=== PATIENT | female | born 1940 | race African-American/Black ===

== ENCOUNTER 2017-03-25 14:38 | Inpatient (IN) ==
[2017-03-25] MEDS ORDERED: COCAINE SUBSTITUTE 30 ML BOTTLE TOP ONE (15:05)
[2017-03-25] MEDS ORDERED: SODIUM CHLORIDE 0.9% 250 ML IV PRN (15:14)
--- NOTE | 2017-03-25 15:31 | Emergency Department Note ---
Krista Dunaway Gwan, am scribing for, and in the presence of, Sam Driver MD 15:12 . Neisha Dunaway James D, MD, personally performed the services described in this documentation, ascribed by Kendy Velasco in my presence, and it is both accurate and complete 529 . Arrival - Arrival Chief Complaint: Nosebleed/Nasal Foreign Body Stated Complaint: nosebleed ED Nursing Triage Note: Transfer from [facility] ER for further evaluation of nosebleed onset this am. Active bleeding noted. Patient takes Coumadin 5mg daily. Denies pain. Mode of Arrival: Stretcher Limitations: No Limitations Source: Patient, Old Records Reviewed, RN Notes Reviewed Time Seen by Provider: 03/25/17 14:58 - History of Present Illness HPI Narrative: Pt is a 76 y/o female, with a hx of HTN and afib, who presents to the via EMS and transferred from [facility] for further evalution of epistaxis with an onset this morning. Patient confirmed that she is taking Coumadin 5mg daily. Patient confirmed that she had this happen about 3 months ago but she denies that it was this bad. She noted that her bleeding is more profuse on left than on the right. Patient denies a SHx of smoking cigarettes or being on Home O2. Pt has a PMHx of cardiac dysrhythmia, RA and blood transfusion. No other problems/complaints reported in ED. Onset (ago): hour(s) Consistency: constant Severity: moderate Date of Last Menstrual Period: Hyst Allergies/Adverse Reactions: Allergies Allergy/AdvReac Type Severity Reaction Status Date / Time ibuprofen Allergy Severe ANAPHYLAXIS Verified 03/25/17 14:56 Penicillins Allergy Severe ITCHING Verified 03/25/17 14:56 Home Medications: Home Medications Medication Instructions Recorded Confirmed Type Allopurinol 300 mg PO DAILY 12/16/16 12/26/16 History Aspirin Chew Tab 81 mg PO DAILY 12/16/16 12/26/16 History Hydrocodone/Acetaminophen 1 each PO TID PRN 12/16/16 12/26/16 History [Hydrocodon-Acetaminophen 5-325] Losartan [Cozaar] 100 mg PO DAILY 12/16/16 12/26/16 History Metoprolol Tartrate Tab [Lopressor 25 mg PO BID 12/16/16 12/26/16 History Tab] Oxybutynin [Ditropan] 5 mg PO BID 12/16/16 12/26/16 History Potassium Chloride Cap/Tab [K Dur] 10 meq PO DAILY 12/16/16 12/26/16 History Spironolactone [Aldactone] 50 mg PO BID 12/16/16 12/26/16 History Warfarin [Coumadin] 0.5 mg PO DAILY 12/16/16 12/26/16 History Warfarin [Coumadin] 5 mg PO DAILY 12/16/16 12/26/16 History hydrALAZINE TAB [Apresoline Tab] 100 mg PO TID 12/16/16 12/26/16 History predniSONE [Dominique] 5 mg PO DAILY 12/16/16 12/26/16 History Tiotropium Br/Olodaterol HCl 4 gm IH DAILY 12/26/16 12/26/16 History [Stiolto Respimat Inhal [place]] HYDROcodone/ACETAMIN 7.5-325 1 tablet PO Q4H PRN #20 tablet 12/27/16 Rx [[place] 7.5-325] Review of System - Review of System 12 point system: reviewed and no additional remarkable complaints except as stated - Review of System Constitutional: Absent: chills, fever Eyes: Absent: discharge, pain Head/Ears/Nose/Throat: Present: see HPI, epistaxis Respiratory: Absent: cough Cardiovascular: Absent: chest pain Gastrointestinal: Absent: abdominal pain, nausea, vomiting, diarrhea Genitourinary female: Absent: abnormal menses, dysuria Musculoskeletal: Absent: arm pain, back pain, leg pain, neck pain Skin: Absent: rash, lesions Neurological: Absent: headache, weakness Psychiatric: Absent: anxiety Medical,Surgical,& Family Hx - Medical History Cardio: History of: Cardiac Dysrhythmia (A FIB ON MEDICATION), Hypertension ( MEDICATION) HEENT: History of: Eye Problem (LEFT EYE CATARACT 2016), HEENT Problems ( NOSEBLEED A FEW DAYS AGO) Rheumatology: History of;: Gout, Rheumatoid Arthritis Respiratory: History of: COPD, Respiratory Problems (SARDOSIS OF THE LUNGS) Genitourinary: History of: Problems (DIFFICULTY URINATING) Musculoskeletal: History of: Back/Neck Problems Hematology: History of: Blood Transfusion Reaction (BLOOD TRANFUSION WITH OWN BLOOD), Clotting Problems (COUMADIN FOR PREVENTION) - Surgical History Abdominal Surgeries: Surgical HX of: Colonoscopy (2014) Reproductive Surgeries: Surgical HX of;: Cystoscopy (2 YEARS AGO), Hysterectomy (PARTIAL 34 YEARS AGO) Orthopedic Surgeries: Surgical HX of;: Total Knee Replacement (LEFT TOTAL KNEE REPLACEMENT) - Family History Family History: Reports;: Family Cancer (MOTHER), Family Heart Disease (MOTHER) , Family Psychiatric Problems (FATHER), Family Stroke (SISTER) - Social History Smoking Status: Never smoker Frequency of Alcohol Use: None Type of Drug Use: None Exam Physical Examination: GENERAL: This is a well-nourished, well-developed female in no apparent distress. VITAL SIGNS: HEENT: Head is normocephalic and atraumatic. Pupils are equally round and reactive to light. Extraocular movement are intact. Oropharynx is benign with moist mucous membranes. Patient has acitve, profuse epistaxis bleeding from bilateral nare during exam: bleeding is more present on left than on the right. NECK: Neck is soft and supple without tenderness. There are no masses. There is no lymphadenopathy. LUNGS: Lungs are clear to auscultation bilaterally. Chest rises symmetrically. There is no chest wall tenderness. CV: Heart is regular rate and rhythm without murmurs, rubs, or gallops. ABDOMEN: Abdomen is soft, non-tender to palpation. There are no abnormal masses palpated. There is no organomegaly. Bowel sounds are present and active. SKIN: Skin is warm and dry. No rash. EXTREMITIES: Patient has full range of motion without tenderness. There is no pedal edema. NEUROLOGIC: Awake, alert, and oriented x4. Cranial nerves II through XII are grossly intact. There are no motorsensory deficits. PSYCHIATRIC: Normal affect. Normal mood. Vital Signs: Vital Signs Temperature 97.2 F L 03/25/17 14:38 Pulse Rate 90 03/25/17 14:38 Respiratory Rate 20 03/25/17 14:38 Blood Pressure 159/88 03/25/17 14:38 O2 Sat by Pulse Oximetry 100 03/25/17 14:38 Course - Consultations Consultation #1: Discussed with Dr. Marinelli. Patient will be seen in the hospital. Time: 15:49 Consultation #2: Discussed with hospitalist. Patient will be admitted to their service. Time: 15:49 Procedures - Epistaxis Control Consent Obtained: verbal consent Time Out Performed: Yes Nostril: bilateral Nose Prepped With: cocaine substitute Direct Inspection: unable to visualize Clots Removed by: suction, manually Device Inserted: hemostatic balloon Patient Tolerated Procedure: well Complications: pain Results - Labs CBC & BMP: 03/25/17 15:29 Lab Results: I have reviewed the patients labs Labs: Laboratory Tests 03/25/17 15:29 WBC 8.2 RBC 3.29 L Hgb 9.4 L Hct 31.0 L MCHC 30.3 L Plt Count 209 Neut % (Auto) 82.8 H Lymph % (Auto) 10.3 L Lymph # (Auto) 0.9 L Disposition Clinical Impression: Epistaxis, Chronic anticoagulation, History of atrial fibrillation Case discussed with: patient, patient's family Disposition: Still a Patient Condition: Guarded
[2017-03-25 15:35] LABS: Basophils % 0.2 % (0.0-0.8); Eosinophils # 0.2 10*3/uL (0.0-0.87); Eosinophils % 2.7 % (0.00-10.9); Hemoglobin 9.4 GM/DL (12.0-16.0); Immature Granulocytes % 0.6 %; Immature Granulocytes Absolute 0.05 #; Lymphocytes # 0.9 10*3/uL (1.4-4.0); Lymphocytes % 10.3 % (21.3-54.2); Mean Corpuscular HGB Conc 30.3 GM/DL (32-36); Mean Corpuscular Hemoglobin 29 PG (27-34); Mean Corpuscular Volume 94.2 FL (87-102); Mean Platelet Volume 11.2 FL (9.6-12.0); Monocytes # 0.3 10*3/uL (0.11-0.8); Monocytes % 3.4 % (1.7-12.7); Neutrophils # 6.8 10*3/uL (1.4-7.4); Neutrophils % 82.8 % (38.7-73.9); Platelet Count 209 T/CUMM (130-400); Red Blood Count 3.29 MC/CUMM (3.8-5.5); Red Cell Distribution Width 15.6 % (9.3-17.3); White Blood Count 8.2 T/CUMM (4-12)
[2017-03-25 15:45] LABS: INR 3.5
[2017-03-25 15:47] LABS: PT Patient Result 40.5 SECS; Partial Thromboplastin Time 43.9 SECS (0-40)
[2017-03-25] MEDS ORDERED: HYDROmorphone 2 MG/1 ML VIAL IV STA (16:02)
[2017-03-25] MEDS ORDERED: ONDANSETRON 4 MG/2 ML VIAL IV STA (16:03)
[2017-03-25 16:09] LABS: Calcium 10.6 MG/DL (8.5-10.1); Potassium 5.4 MMOL/L (3.5-5.1)
[2017-03-25] MEDS ORDERED: HYDROmorphone 2 MG/1 ML VIAL ONE (16:20)
[2017-03-25] MEDS ORDERED: ONDANSETRON 4 MG/2 ML VIAL ONE (16:20)
--- NOTE | 2017-03-25 16:42 | Hospitalist History & Physical ---
Assessment and Plan - Time spent with patient Time spent with patient: Greater than 30 minutes (1) Epistaxis Status: Acute Assessment and plan: Perfuse hemorrhage of both nostrils. Packed in ED. Check CBC w/diff and PT/PTT. Consult ENT. Current Visit: Yes (2) Chronic anticoagulation Status: Acute Assessment and plan: Coumadin 5mg daily. INR 3.5. PTT 43.9. Coumadin has been held. FFP has been ordered. Will recheck CBC and PT/PTT. Current Visit: Yes (3) COPD (chronic obstructive pulmonary disease) Status: Acute Assessment and plan: Decreased breath sounds throughout. Denies O2 use at home. O2 Sat 93-100% on room air. Followed by Dr. Batista. Current Visit: Yes (4) History of atrial fibrillation Status: Acute Assessment and plan: Rate controlled. Hold anticoagulation d/t hemorrhaging. Followed by Dr. Noble. Current Visit: Yes History of Present Illness Chief complaint: Epistaxis History of present illness: Ms. Frost is a 76 year old female with a history significant for hypertension , atrial fibrillation, COPD and TIA in 2011 who presented by EMS as a transfer from [facility] for further evaluation of nosebleed which began this morning. Patient states that she woke up this morning to a perfuse nosebleed that she couldn't get to stop. She reports that these nosebleeds started a few months ago when she began anticoagulation therapy with Coumadin 5 mg daily for atrial fibrillation. She also reports a history of skin cancer for which she started radiation on March 04. She believes the radiation "brought this on" again. In the ER, both nostrils have been packed and the patient does not report any postnasal drainage. She does report hemoptysis, chills and a headache. She denies blurry vision, syncope, chest pain, palpitations, abdominal pain, numbness or tingling. H&H is 9.4 and 31.0, INR is 3.5, PT 40.5, PTT 43.9, BUN 29, Cr 1.40. She has been typed and screened, FFP has been ordered , and ENT consulted. She will be admitted to the hospital medicine service for further evaluation and management. Patient is followed by Dr. Jeana Noble and Dr. Ambrocio Batista. Home Medications Medication Instructions Recorded Confirmed Type Allopurinol 300 mg PO DAILY 12/16/16 12/26/16 History Aspirin Chew Tab 81 mg PO DAILY 12/16/16 12/26/16 History Hydrocodone/Acetaminophen 1 each PO TID PRN 12/16/16 12/26/16 History [Hydrocodon-Acetaminophen 5-325] Losartan [Cozaar] 100 mg PO DAILY 12/16/16 12/26/16 History Metoprolol Tartrate Tab [Lopressor 25 mg PO BID 12/16/16 12/26/16 History Tab] Oxybutynin [Ditropan] 5 mg PO BID 12/16/16 12/26/16 History Potassium Chloride Cap/Tab [K Dur] 10 meq PO DAILY 12/16/16 12/26/16 History Spironolactone [Aldactone] 50 mg PO BID 12/16/16 12/26/16 History Warfarin [Coumadin] 0.5 mg PO DAILY 12/16/16 12/26/16 History Warfarin [Coumadin] 5 mg PO DAILY 12/16/16 12/26/16 History hydrALAZINE TAB [Apresoline Tab] 100 mg PO TID 12/16/16 12/26/16 History predniSONE [Dominique] 5 mg PO DAILY 12/16/16 12/26/16 History Tiotropium Br/Olodaterol HCl 4 gm IH DAILY 12/26/16 12/26/16 History [Stiolto Respimat Inhal [place]] HYDROcodone/ACETAMIN 7.5-325 1 tablet PO Q4H PRN #20 tablet 12/27/16 Rx [[place] 7.5-325] Allergies Allergy/AdvReac Type Severity Reaction Status Date / Time ibuprofen Allergy Severe ANAPHYLAXIS Verified 03/25/17 14:56 Penicillins Allergy Severe ITCHING Verified 03/25/17 14:56 Medical,Surgical,& Family Hx - Medical History Cardio: History of: Cardiac Dysrhythmia (A FIB ON MEDICATION), Hypertension ( MEDICATION) Neurology: History of: Cerebrovascular Accident (2011) HEENT: History of: Eye Problem (LEFT EYE CATARACT 2015), HEENT Problems ( NOSEBLEED A FEW DAYS AGO) Rheumatology: History of;: Gout, Rheumatoid Arthritis Respiratory: History of: COPD, Respiratory Problems (SARDOSIS OF THE LUNGS) Genitourinary: History of: Problems (DIFFICULTY URINATING) Musculoskeletal: History of: Back/Neck Problems Hematology: History of: Blood Transfusion Reaction (BLOOD TRANFUSION WITH OWN BLOOD), Clotting Problems (COUMADIN FOR PREVENTION) - Surgical History Abdominal Surgeries: Surgical HX of: Colonoscopy (2014) Reproductive Surgeries: Surgical HX of;: Cystoscopy (2 YEARS AGO), Hysterectomy (PARTIAL 34 YEARS AGO) Orthopedic Surgeries: Surgical HX of;: Total Knee Replacement (LEFT TOTAL KNEE REPLACEMENT) - Family History Family History: Reports;: Family Cancer (MOTHER), Family Heart Disease (MOTHER) , Family Psychiatric Problems (FATHER), Family Stroke (SISTER) - Social History Smoking Status: Never smoker Frequency of Alcohol Use: None Type of Drug Use: None Marital Status: Single Lives With:: Alone Functional capacity: uses cane/walker - Constitutional Constitutional: Present: chills, headache(s), weakness. Absent: fatigue, fever( s), night sweats - EENT Eyes: Absent: blurry vision, loss of vision Ears: Absent: decreased hearing, ear pain Nose, mouth and throat: Present: epistaxis, headache(s), nasal congestion. Absent: neck pain, sinus pressure - Cardiovascular Cardiovascular: Absent: chest pain at rest, dyspnea, dyspnea on exertion, edema , radiating jaw, neck or arm pain - Respiratory Respiratory: Present: cough, hemoptysis. Absent: dyspnea, wheezing - Gastrointestinal Gastrointestinal: Absent: abdominal pain, change in bowel habits, coffee ground emesis, constipation, diarrhea, hematochezia, melena, nausea - Genitourinary Genitourinary: Absent: difficulty urinating, flank pain, hematuria - Musculoskeletal Musculoskeletal: Absent: arthralgias, back pain, muscle weakness - Neurological Neurological: Absent: abnormal gait, abnormal speech, numbness, syncope - Psychiatric Psychiatric: Absent: anxiety, confusion, depression - Endocrine Endocrine: Present: cold intolerance. Absent: heat intolerance - Hematologic/Lymphatic Hematologic/Lymphatic: Present: easy bleeding, easy bruising Exam - Constitutional Vitals: Period Temp Pulse Resp BP Sys/Jara Pulse Ox Last 24 Hr 97.2 F 90 20 159/88 100 Exam: General appearance: obese, no acute distress - Head Head exam: Present: normocephalic, bloody from epistaxis - Eye Eye exam: Present: EOMI. Absent: conjunctival injection, nystagmus Pupils: Present: SATHYA, normal accommodation - ENT ENT exam: Present: normal exam, normal external ear exam, epistaxis of both nostrils - Neck Neck exam: Present: normal inspection. Absent: lymphadenopathy, tenderness, thyromegaly - Respiratory Respiratory exam: Present: decreased breath sounds bilaterally. Absent: rales, rhonchi, wheezes - Cardiovascular Cardiovascular exam: Present: regular rate and rhythm. Absent: carotid bruit, gallop, rubs - GI/Abdominal GI/Abdominal exam: Present: normal bowel sounds. Absent: ascites, distended, mass - Extremities Exam Extremities exam: Present: normal inspection, normal capillary refill. Absent: edema - Back Exam Back exam: Absent: CVA tenderness (L), CVA tenderness (R) - Neurological Exam Neurological exam: Present: alert, oriented X3 - Psychiatric Psychiatric exam: Present: normal affect, normal mood - Skin Skin exam: Present: normal color, warm, dry Results - Labs CBC & BMP: 03/25/17 15:29 03/25/17 15:29 Lab Results: I have reviewed the past 24 hour labs
[2017-03-25] MEDS: SODIUM CHLORIDE 0.9% 1,000 ML IV SCH (17:27)
[2017-03-25] MEDS: ACETAMINOPHEN 325 MG TABLET PO PRN (22:39)
[2017-03-26] MEDS: ACETAMINOPHEN 325 MG TABLET PO PRN (03:08)
[2017-03-26] MEDS: METOPROLOL SUCCINATE XL 25 MG TABLET PO SCH ×3 (04:01→21:32)
[2017-03-26 06:16] LABS: Calcium 9.8 MG/DL (8.5-10.1); Osmolality,Calculated 293.8 MOS/KG (273-304); Potassium 5.1 MMOL/L (3.5-5.1)
[2017-03-26 06:53] LABS: Basophils % 0.1 % (0.0-0.8); Eosinophils # 0.2 10*3/uL (0.0-0.87); Eosinophils % 2.6 % (0.00-10.9); Hematocrit 24.8 VOL% (35.7-47.0); Immature Granulocytes % 0.4 %; Immature Granulocytes Absolute 0.03 #; Lymphocytes # 0.9 10*3/uL (1.4-4.0); Lymphocytes % 12.1 % (21.3-54.2); Mean Corpuscular HGB Conc 30.6 GM/DL (32-36); Mean Corpuscular Hemoglobin 29 PG (27-34); Mean Corpuscular Volume 93.6 FL (87-102); Mean Platelet Volume 11.4 FL (9.6-12.0); Monocytes # 0.5 10*3/uL (0.11-0.8); Monocytes % 6.4 % (1.7-12.7); Neutrophils # 5.8 10*3/uL (1.4-7.4); Neutrophils % 78.4 % (38.7-73.9); Red Blood Count 2.65 MC/CUMM (3.8-5.5); Red Cell Distribution Width 15.7 % (9.3-17.3); White Blood Count 7.4 T/CUMM (4-12)
[2017-03-26 06:54] LABS: Hemoglobin 7.6 GM/DL (12.0-16.0); Platelet Count 156 T/CUMM (130-400)
[2017-03-26] MEDS: SODIUM CHLORIDE 0.9% 1,000 ML IV SCH (08:35)
[2017-03-26] MEDS: PANTOPRAZOLE 40 MG TABLET PO SCH (08:35)
[2017-03-26 09:04] LABS: Basophils % 0.1 % (0.0-0.8); Eosinophils # 0.2 10*3/uL (0.0-0.87); Hematocrit 23.3 VOL% (35.7-47.0); Hemoglobin 7.2 GM/DL (12.0-16.0); Immature Granulocytes % 0.3 %; Immature Granulocytes Absolute 0.02 #; Lymphocytes # 0.9 10*3/uL (1.4-4.0); Lymphocytes % 10.9 % (21.3-54.2); Mean Corpuscular HGB Conc 30.9 GM/DL (32-36); Mean Corpuscular Hemoglobin 29 PG (27-34); Mean Corpuscular Volume 93.2 FL (87-102); Mean Platelet Volume 11.2 FL (9.6-12.0); Monocytes # 0.5 10*3/uL (0.11-0.8); Monocytes % 5.8 % (1.7-12.7); Neutrophils # 6.3 10*3/uL (1.4-7.4); Neutrophils % 80.9 % (38.7-73.9); Platelet Count 156 T/CUMM (130-400); Red Cell Distribution Width 15.7 % (9.3-17.3); White Blood Count 7.8 T/CUMM (4-12)
[2017-03-26 09:23] LABS: INR 2.3
[2017-03-26 09:24] LABS: PT Patient Result 25.4 SECS
--- NOTE | 2017-03-26 13:58 | Consultation ---
Assessment and Plan - Time spent with patient Time spent with patient: Less than 30 minutes (1) Epistaxis Status: Acute Assessment and plan: I recommend keeping the packs in place bilaterally the balloon was let down bilaterally I did discuss with nursing that they may blow it up again if the epistaxis worsens. Additionally I recommended a mustache dressing as there will be some breakdown of nasal airway blood clot additionally she would need to be on an antibiotic most likely Bactrim because of her penicillin allergy and I would recommend placing mupirocin at the nasal airway to keep from nasal vestibulitis forming. I will continue to follow this patient Thank you very much for this consult Current Visit: Yes (2) Chronic anticoagulation Status: Acute Current Visit: Yes (3) History of atrial fibrillation Status: Acute Current Visit: Yes History of Present Illness - Data of Consult Patient: new to practice Consult date: 03/26/17 Requesting Physician: deloris - Consult Narrative Reason for consult: Bilateral epistaxis, coagulopathy History of present illness: Ms. Frost is a 76 year old female on anticoagulation with secondary bilateral epistaxis with inability to control at an outside hospital and shipped to the emergency room here were bilateral Rhino Rocket were able to be placed and slow the epistaxis. The patient was subsequently admitted and ENT is consulted for epistaxis. She is received multiple units of hemoglobin fresh frozen plasma and her INR has gone from 3-1/2-2-1/2 with continued nasal epistaxis around the packs which were inflated bilaterally. CC: Isaac Abad MD - Home Medications and Allergies Home Medications: Home Medications Medication Instructions Recorded Confirmed Type Allopurinol 300 mg PO DAILY 12/16/16 03/25/17 History Aspirin Chew Tab 81 mg PO DAILY 12/16/16 03/25/17 History Hydrocodone/Acetaminophen 1 each PO TID PRN 12/16/16 03/25/17 History [Hydrocodon-Acetaminophen 5-325] Losartan [Cozaar] 100 mg PO DAILY 12/16/16 03/25/17 History Metoprolol Tartrate Tab [Lopressor 25 mg PO BID 12/16/16 03/25/17 History Tab] Potassium Chloride Cap/Tab [K Dur] 10 meq PO DAILY 12/16/16 03/25/17 History Spironolactone [Aldactone] 50 mg PO BID 01/16/17 04/25/17 History Warfarin [Coumadin] 5.5 mg PO DAILY 12/16/16 03/25/17 History hydrALAZINE TAB [Apresoline Tab] 100 mg PO TID 12/16/16 03/25/17 History predniSONE [Dominique] 5 mg PO DAILY 12/16/16 03/25/17 History Allergies/Adverse Reactions: Allergies Allergy/AdvReac Type Severity Reaction Status Date / Time ibuprofen Allergy Severe ANAPHYLAXIS Verified 03/25/17 14:56 Penicillins Allergy Severe ITCHING Verified 03/25/17 14:56 12 point system: reviewed and no additional remarkable complaints except as stated Medical,Surgical,& Family Hx - Medical History Cardio: History of: Cardiac Dysrhythmia (A FIB ON MEDICATION), Hypertension ( MEDICATION) Psychological: No history of: Anxiety Disorders, ADHD, Behavior Problems, Bipolar Disorder, Depression, Previous Suicide Attempt, Psychiatric/Substance Abuse Tx, Schizophrenia, Violent Behavior, Psychiatric Problems Neurology: History of: Cerebrovascular Accident (2011) HEENT: History of: Eye Problem (LEFT EYE CATARACT 2015), HEENT Problems ( NOSEBLEED A FEW DAYS AGO) Rheumatology: History of;: Gout, Rheumatoid Arthritis Respiratory: History of: COPD, Respiratory Problems (SARDOSIS OF THE LUNGS) Genitourinary: History of: Problems (DIFFICULTY URINATING) Musculoskeletal: History of: Back/Neck Problems Hematology: History of: Blood Transfusion Reaction (BLOOD TRANFUSION WITH OWN BLOOD), Clotting Problems (COUMADIN FOR PREVENTION) - Surgical History Abdominal Surgeries: Surgical HX of: Colonoscopy (2013) Reproductive Surgeries: Surgical HX of;: Cystoscopy (2 YEARS AGO), Hysterectomy (PARTIAL 34 YEARS AGO) Orthopedic Surgeries: Surgical HX of;: Total Knee Replacement (LEFT TOTAL KNEE REPLACEMENT) - Family History Family History: Reports;: Family Cancer (MOTHER), Family Heart Disease (MOTHER) , Family Psychiatric Problems (FATHER), Family Stroke (SISTER) - Social History Smoking Status: Never smoker Frequency of Alcohol Use: None Type of Drug Use: None Exam - Constitutional Vitals: Period Temp Pulse Resp BP Sys/Jara Pulse Ox Last 24 Hr 92.2 F-99.4 F 81-124 16-20 105-163/51-93 91-99 General appearance: no acute distress, over weight - Head Head exam: Present: normal inspection, normocephalic - Eye Eye exam: Present: EOMI Pupils: Present: SATHYA - ENT ENT exam: Present: normal exam, normal external ear exam, normal oropharynx, other (Bilateral Rhino Rocket's in place with mild epistaxis/breakdown of surrounding blood clots in the nasal airway. Rhino Rocket balloons were let down and left in place with no worsening of the bleeding/epistaxis) - Neck Neck exam: Present: normal inspection - Respiratory Respiratory exam: Present: other - GI/Abdominal GI/Abdominal exam: Present: soft (Obese) - Extremities Exam Extremities exam: Present: normal inspection - Neurological Exam Neurological exam: Present: alert, CN II-XII intact - Psychiatric Psychiatric exam: Present: normal affect, normal mood Results - Labs CBC & BMP: 03/26/17 08:26 03/26/17 05:05 Lab Results: I have reviewed the past 24 hour labs (Noted recent drop in hemoglobin being treated with red blood cells and fresh frozen plasma)
[2017-03-26] MEDS: SULFAMETHOX/TRIMETHOPRIM 800-160 MG TABLET PO SCH ×2 (14:10→21:31)
[2017-03-26] MEDS: MUPIROCIN 2% OINT 22 GM TUBE TOP SCH ×2 (14:11→21:32)
--- NOTE | 2017-03-26 18:04 | Hospitalist Progress Note ---
Assessment and Plan (1) Epistaxis Status: Acute Assessment and plan: Reversal of Coumadin with fresh frozen plasma and replacement of acute blood loss anemia with packed red blood cell transfusion. ENT consult reviewed. Add Bactrim and continue to monitor with Rhino Rocket's. Reassess balloons to ensure adequate pressure on bleeding vessels. Current Visit: Yes (2) Acute blood loss anemia Status: Acute Assessment and plan: 1 unit packed red blood cell transfusion performed. Follow-up repeat CBC and transfuse if hemoglobin less than 8. Current Visit: Yes (3) Warfarin-induced coagulopathy Status: Acute Current Visit: Yes (4) Chronic anticoagulation Status: Chronic Current Visit: Yes (5) History of atrial fibrillation Status: Chronic Assessment and plan: Rate controlled. Anticoagulated with Coumadin. Elevated INR on admission with epistaxis. Reversal performed with FFP. Current Visit: Yes (6) Hypertension Status: Acute Current Visit: Yes Qualifiers: Hypertension type: essential hypertension Qualified Code(s): I10 - Essential (primary) hypertension Hospitalist: Subjective Interval history: Patient seen and examined. Case discussed with the family at the bedside. Case also discussed with the nurse regarding transfusion of blood and FFP. I saw Dr. Marinelli and informed him of the patient and her room number. He has agreed to see her in consultation and his help is appreciated. Exam - Constitutional Vitals: Period Temp Pulse Resp BP Sys/Jara Pulse Ox Last 24 Hr 92.2 F-99.4 F 81-124 16-20 135-166/51-93 91-99 General appearance: mild distress - Head Head exam: Present: normal inspection, normocephalic, atraumatic - ENT ENT exam: Present: other (Bilateral Rhino Rocket in place with minimal oozing around them.) - Respiratory Respiratory exam: Present: clear to auscultation bilaterally - Cardiovascular Cardiovascular exam: Present: irregular rhythm - GI/Abdominal GI/Abdominal exam: Present: normal bowel sounds, soft. Absent: tenderness, rebound - Neurological Exam Neurological exam: Present: alert, oriented X3 - Psychiatric Psychiatric exam: Present: normal affect, normal mood - Skin Skin exam: Present: normal color, warm, dry Results - Labs CBC & BMP: 03/26/17 08:26 03/26/17 05:05 Lab Results: I have reviewed the past 24 hour labs
[2017-03-26 18:05] LABS: Hematocrit 26.2 VOL% (35.7-47.0)
[2017-03-26 18:22] LABS: INR 1.8; PT Patient Result 19.7 SECS
[2017-03-26] MEDS: METOPROLOL TARTRATE 25 MG TABLET PO SCH (21:33)
[2017-03-27 05:45] LABS: Basophils % 0.1 % (0.0-0.8); Eosinophils # 0.1 10*3/uL (0.0-0.87); Eosinophils % 1.2 % (0.00-10.9); Hematocrit 23.4 VOL% (35.7-47.0); Hemoglobin 7.3 GM/DL (12.0-16.0); Immature Granulocytes % 0.6 %; Immature Granulocytes Absolute 0.05 #; Lymphocytes # 0.8 10*3/uL (1.4-4.0); Mean Corpuscular HGB Conc 31.2 GM/DL (32-36); Mean Corpuscular Hemoglobin 28 PG (27-34); Monocytes # 0.7 10*3/uL (0.11-0.8); Monocytes % 8.6 % (1.7-12.7); Neutrophils # 6.7 10*3/uL (1.4-7.4); Neutrophils % 80.5 % (38.7-73.9); Platelet Count 122 T/CUMM (130-400); Red Cell Distribution Width 15.5 % (9.3-17.3); White Blood Count 8.3 T/CUMM (4-12)
[2017-03-27 05:57] LABS: INR 1.9; PT Patient Result 20.7 SECS
[2017-03-27 06:20] LABS: Calcium 10.4 MG/DL (8.5-10.1); Magnesium 1.5 MG/DL (1.8-2.4); Osmolality,Calculated 284.3 MOS/KG (273-304); Potassium 5.3 MMOL/L (3.5-5.1)
[2017-03-27] MEDS ORDERED: MAGNESIUM SULF RIDER 2 GM in PREMIX 1 EACH IV ONE (09:06)
[2017-03-27] MEDS: LOSARTAN 50 MG TABLET PO SCH (09:29)
[2017-03-27] MEDS: predniSONE 5 MG TABLET PO SCH (09:29)
[2017-03-27] MEDS: METOPROLOL TARTRATE 25 MG TABLET PO SCH ×2 (09:29→22:03)
[2017-03-27] MEDS: METOPROLOL SUCCINATE XL 25 MG TABLET PO SCH (09:29)
[2017-03-27] MEDS: ALLOPURINOL 300 MG TABLET PO SCH (09:29)
[2017-03-27] MEDS: PANTOPRAZOLE 40 MG TABLET PO SCH (09:29)
[2017-03-27] MEDS: SULFAMETHOX/TRIMETHOPRIM 800-160 MG TABLET PO SCH ×2 (09:29→22:04)
[2017-03-27] MEDS: MUPIROCIN 2% OINT 22 GM TUBE TOP SCH ×3 (09:31→22:04)
--- NOTE | 2017-03-27 10:26 | Hospitalist Progress Note ---
Assessment and Plan (1) Epistaxis Status: Acute Assessment and plan: Reversal of Coumadin with fresh frozen plasma and replacement of acute blood loss anemia with packed red blood cell transfusion. ENT consult reviewed. Add Bactrim and continue to monitor with Rhino Rocket's. Reassess balloons to ensure adequate pressure on bleeding vessels. Add vancomycin. Pharmacy consult. Current Visit: Yes (2) Acute blood loss anemia Status: Acute Assessment and plan: An additional 2 unit packed red blood cell transfusion performed. Follow-up repeat CBC and transfuse if hemoglobin less than 8. Current Visit: Yes (3) Warfarin-induced coagulopathy Status: Acute Assessment and plan: INR 1.9. Current Visit: Yes (4) Chronic anticoagulation Status: Chronic Current Visit: Yes (5) History of atrial fibrillation Status: Chronic Assessment and plan: Rate controlled. Anticoagulated with Coumadin. Elevated INR on admission with epistaxis. Reversal performed with FFP. Current Visit: Yes (6) Hypertension Status: Acute Current Visit: Yes Qualifiers: Hypertension type: essential hypertension Qualified Code(s): I10 - Essential (primary) hypertension Hospitalist: Subjective Interval history: Patient seen and examined. Case discussed with the family at the bedside. ENT consultation reviewed. Her hemoglobin has dropped again and 2 more units of packed red blood cells have been ordered. Her INR is 1.9. She is starting to have some low-grade fever and remains tachycardic. Exam - Constitutional Vitals: Period Temp Pulse Resp BP Sys/Jara Pulse Ox Last 24 Hr 98.7 F-100.5 F 84-117 18-20 138-166/68-93 92-99 Exam: Constitutional System: Probably morbidly obese distress. No tremulousness. Head: Normocephalic, atraumatic. Ears, Nose and Throat System: Bilateral nasal packing and Rhino Rocket's in place. Complains of pain and pressure. Eyes System: Pupils equal, round, and reactive. Extraocular muscles intact. Neck: Supple, without adenopathy, No jugular venous distention. No thyromegaly, neck mass, or prior surgery apparent. Respiratory System: Chest clear to auscultation. Cardiovascular System: Heart with regular rate and rhythm. No murmur. GI System: Abdomen soft, nontender. Normo active bowel sounds present. Neurological System: No discernable sensory deficit. No aphasia Psychiatric System: Conversation is rational Results - Labs CBC & BMP: 03/27/17 04:50 03/27/17 04:50 Lab Results: I have reviewed the past 24 hour labs
[2017-03-27] MEDS: ACETAMINOPHEN 325 MG TABLET PO PRN (11:36)
[2017-03-27] MEDS: VANCOMYCIN INJ 2,000 MG in SODIUM CHLORIDE 0.9% 500 ML IV SCH (11:37)
--- NOTE | 2017-03-27 14:26 | Progress Note ---
Assessment and Plan - Time spent with patient Time spent with patient: Less than 30 minutes (1) Epistaxis Status: Acute Assessment and plan: I recommend keeping the packs in place bilaterally the balloon was let down bilaterally I did discuss with nursing that they may blow it up again if the epistaxis worsens. Additionally I recommended a mustache dressing as there will be some breakdown of nasal airway blood clot additionally she would need to be on an antibiotic most likely Bactrim because of her penicillin allergy and I would recommend placing mupirocin at the nasal airway to keep from nasal vestibulitis forming. I will continue to follow this patient Thank you very much for this consult 03/27/2017 I recommend no acute changes and care at this time the minimal oozing is of minimal concern and I do not think that the risks of blowing up the Rhino Rocket outweighs the concern of possible septal necrosis at this point. I concur with continued antibiotic coverage as with the nasal packing she does technically have a sinusitis that we are trying to prophylax. While her hemoglobin hematocrit and coagulopathy is resolving I recommend we keep the nasal packing in place. I will continue to follow this case I do not recommend removal of these Rhino Rocket's in the near future at this rate if there are any additional questions do not hesitate to ask Current Visit: Yes (2) Chronic anticoagulation Status: Chronic Current Visit: Yes (3) History of atrial fibrillation Status: Chronic Current Visit: Yes Family Medicine PN Sub Interval history: Follow-up status post bilateral epistaxis secondary to coagulopathy. Late yesterday the Rhino Rocket's were deflated and she has had some mild oozing but it is being controlled with a mustache dressing. No new concerns voiced per nursing staff Exam (Progress Note) - Constitutional Vitals: Period Temp Pulse Resp BP Sys/Jara Pulse Ox Last 24 Hr 98.7 F-1103 F 91-117 18-20 130-162/67-87 93-99 General appearance: no acute distress, over weight - Head Head exam: Present: normal inspection, normocephalic - Eye Eye exam: Present: EOMI Pupils: Present: SATHYA - ENT ENT exam: Present: normal exam, normal external ear exam, normal oropharynx, other (Bilateral Rhino Rocket in place deflated with mild to minimal epistaxis/ bloody oozing around the Rhino Rocket) - Neck Neck exam: Present: normal inspection - Respiratory Respiratory exam: Present: other (No shortness of breath or tachypnea) - GI/Abdominal GI/Abdominal exam: Present: soft - Extremities Exam Extremities exam: Present: normal inspection - Neurological Exam Neurological exam: Present: alert, oriented X3, CN II-XII intact - Psychiatric Psychiatric exam: Present: normal affect, normal mood - Skin Skin exam: Present: normal color, warm Results - Labs CBC & BMP: 03/27/17 04:50 03/27/17 04:50 Lab Results: I have reviewed the past 24 hour labs
[2017-03-27 22:20] LABS: Hematocrit 28.8 VOL% (35.7-47.0)
[2017-03-27 22:25] LABS: Hemoglobin 9.2 GM/DL (12.0-16.0)
[2017-03-27 22:30] LABS: INR 1.5; PT Patient Result 15.9 SECS
[2017-03-28] MEDS: VANCOMYCIN INJ 2,000 MG in SODIUM CHLORIDE 0.9% 500 ML IV SCH ×3 (00:24→23:04)
[2017-03-28] MEDS: METOPROLOL TARTRATE 25 MG TABLET PO SCH ×2 (08:45→20:24)
[2017-03-28] MEDS: SULFAMETHOX/TRIMETHOPRIM 800-160 MG TABLET PO SCH ×2 (08:45→20:23)
[2017-03-28] MEDS: MUPIROCIN 2% OINT 22 GM TUBE TOP SCH ×3 (08:46→20:24)
[2017-03-28] MEDS: PANTOPRAZOLE 40 MG TABLET PO SCH (08:46)
[2017-03-28] MEDS: LOSARTAN 50 MG TABLET PO SCH (08:46)
[2017-03-28] MEDS: predniSONE 5 MG TABLET PO SCH (08:46)
[2017-03-28] MEDS: ALLOPURINOL 300 MG TABLET PO SCH (08:46)
--- NOTE | 2017-03-28 10:04 | Hospitalist Progress Note ---
Assessment and Plan (1) Epistaxis Status: Acute Assessment and plan: Reversal of Coumadin with fresh frozen plasma and replacement of acute blood loss anemia with packed red blood cell transfusion. ENT consult reviewed. Add Bactrim and continue to monitor with Rhino Rocket's. Reassess balloons to ensure adequate pressure on bleeding vessels. Add vancomycin. Pharmacy consult. Current Visit: Yes (2) Acute blood loss anemia Status: Acute Assessment and plan: Follow-up repeat CBC and transfuse if hemoglobin less than 8. Current Visit: Yes (3) Warfarin-induced coagulopathy Status: Acute Assessment and plan: INR 1.5. Current Visit: Yes (4) Chronic anticoagulation Status: Chronic Current Visit: Yes (5) History of atrial fibrillation Status: Chronic Assessment and plan: Rate controlled. Anticoagulated with Coumadin. Elevated INR on admission with epistaxis. Reversal performed with FFP. Current Visit: Yes (6) Hypertension Status: Acute Current Visit: Yes Qualifiers: Hypertension type: essential hypertension Qualified Code(s): I10 - Essential (primary) hypertension Hospitalist: Subjective Interval history: Patient seen and examined. No acute events overnight. Case discussed with nursing staff. Labs reviewed. Exam - Constitutional Vitals: Period Temp Pulse Resp BP Sys/Jara Pulse Ox Last 24 Hr 98.3 F-1103 F 91-112 16-22 115-140/59-79 94-99 Exam: Constitutional System: morbidly obese, no distress. No tremulousness. Head: Normocephalic, atraumatic. Ears, Nose and Throat System: Bilateral nasal packing and Rhino Rocket's in place. no complains of pain and pressure. Eyes System: Pupils equal, round, and reactive. Extraocular muscles intact. Neck: Supple, without adenopathy, No jugular venous distention. No thyromegaly, neck mass, or prior surgery apparent. Respiratory System: Chest clear to auscultation. Cardiovascular System: Heart with regular rate and rhythm. No murmur. GI System: Abdomen soft, nontender. Normo active bowel sounds present. Neurological System: No discernable sensory deficit. No aphasia Psychiatric System: Conversation is rational Results - Labs CBC & BMP: 03/27/17 22:09 03/27/17 04:50 Lab Results: I have reviewed the past 24 hour labs
--- NOTE | 2017-03-28 12:31 | Progress Note ---
Assessment and Plan - Time spent with patient Time spent with patient: Less than 30 minutes (1) Epistaxis Status: Acute Assessment and plan: I recommend keeping the packs in place bilaterally the balloon was let down bilaterally I did discuss with nursing that they may blow it up again if the epistaxis worsens. Additionally I recommended a mustache dressing as there will be some breakdown of nasal airway blood clot additionally she would need to be on an antibiotic most likely Bactrim because of her penicillin allergy and I would recommend placing mupirocin at the nasal airway to keep from nasal vestibulitis forming. I will continue to follow this patient Thank you very much for this consult 03/27/2017 I recommend no acute changes and care at this time the minimal oozing is of minimal concern and I do not think that the risks of blowing up the Rhino Rocket outweighs the concern of possible septal necrosis at this point. I concur with continued antibiotic coverage as with the nasal packing she does technically have a sinusitis that we are trying to prophylax. While her hemoglobin hematocrit and coagulopathy is resolving I recommend we keep the nasal packing in place. I will continue to follow this case I do not recommend removal of these Rhino Rocket's in the near future at this rate if there are any additional questions do not hesitate to ask 03/28/2017 The decrease in epistaxis issues around the nasal packs bilaterally is encouraging. If there is no worsening of condition I will pull the right Rhino Rocket tomorrow and see if that is tolerated well if if so on Friday we may consider removing the left Rhino Rocket as well. Overall it says she is improving and I am pleased. Current Visit: Yes (2) Chronic anticoagulation Status: Chronic Current Visit: Yes (3) History of atrial fibrillation Status: Chronic Current Visit: Yes Family Medicine PN Sub Interval history: Progress note on bilateral epistaxis secondary to coagulopathy. Marked decrease in drainage from bilateral nares packed with Rhino Rocket's. Patient has no new complaints and states she is feeling better no worsening of condition noted from nursing staff. Exam (Progress Note) - Constitutional Vitals: Period Temp Pulse Resp BP Sys/Jara Pulse Ox Last 24 Hr 97.5 F-1103 F 91-112 16-22 115-140/59-79 92-99 General appearance: normal weight, no acute distress, over weight - Head Head exam: Present: normal inspection, normocephalic - Eye Eye exam: Present: EOMI Pupils: Present: SATHYA - ENT ENT exam: Present: normal exam, normal external ear exam, normal oropharynx, other (Bilateral Rhino Rocket nasal packs in place minimal drainage left greater than right.) - Neck Neck exam: Present: normal inspection - Respiratory Respiratory exam: Present: other (No tachypnea or shortness of breath) - GI/Abdominal GI/Abdominal exam: Present: soft, other (Obese) - Extremities Exam Extremities exam: Present: normal inspection - Neurological Exam Neurological exam: Present: alert, oriented X3, CN II-XII intact - Psychiatric Psychiatric exam: Present: normal affect, normal mood - Skin Skin exam: Present: normal color, warm Results - Labs CBC & BMP: 03/27/17 22:09 03/27/17 04:50 Lab Results: I have reviewed the past 24 hour labs (Improved hemoglobin)
[2017-03-28] MEDS: ACETAMINOPHEN 325 MG TABLET PO PRN (20:23)
[2017-03-29 06:29] LABS: Basophils % 0.4 % (0.0-0.8); Eosinophils # 0.3 10*3/uL (0.0-0.87); Eosinophils % 3.2 % (0.00-10.9); Hematocrit 27.8 VOL% (35.7-47.0); Hemoglobin 8.8 GM/DL (12.0-16.0); Immature Granulocytes % 0.5 %; Immature Granulocytes Absolute 0.04 #; Lymphocytes # 0.9 10*3/uL (1.4-4.0); Lymphocytes % 10.9 % (21.3-54.2); Mean Corpuscular HGB Conc 31.7 GM/DL (32-36); Mean Corpuscular Hemoglobin 29 PG (27-34); Mean Corpuscular Volume 91.1 FL (87-102); Mean Platelet Volume 11.4 FL (9.6-12.0); Monocytes # 0.5 10*3/uL (0.11-0.8); Monocytes % 6.2 % (1.7-12.7); Neutrophils # 6.4 10*3/uL (1.4-7.4); Neutrophils % 78.8 % (38.7-73.9); Platelet Count 133 T/CUMM (130-400); Red Blood Count 3.05 MC/CUMM (3.8-5.5); Red Cell Distribution Width 15.6 % (9.3-17.3); White Blood Count 8.1 T/CUMM (4-12)
[2017-03-29 06:33] LABS: INR 1.2; PT Patient Result 13.3 SECS
[2017-03-29 07:07] LABS: Calcium 10.9 MG/DL (8.5-10.1); Magnesium 1.8 MG/DL (1.8-2.4); Osmolality,Calculated 278.7 MOS/KG (273-304); Potassium 5.3 MMOL/L (3.5-5.1)
[2017-03-29] MEDS: ALLOPURINOL 300 MG TABLET PO SCH (08:52)
[2017-03-29] MEDS: PANTOPRAZOLE 40 MG TABLET PO SCH (08:52)
[2017-03-29] MEDS: SULFAMETHOX/TRIMETHOPRIM 800-160 MG TABLET PO SCH ×2 (08:52→21:17)
[2017-03-29] MEDS: LOSARTAN 50 MG TABLET PO SCH (08:52)
[2017-03-29] MEDS: predniSONE 5 MG TABLET PO SCH (08:52)
[2017-03-29] MEDS: MUPIROCIN 2% OINT 22 GM TUBE TOP SCH ×3 (08:52→21:18)
[2017-03-29] MEDS: METOPROLOL TARTRATE 25 MG TABLET PO SCH ×2 (08:57→21:18)
--- NOTE | 2017-03-29 10:09 | Progress Note ---
Assessment and Plan - Time spent with patient Time spent with patient: Less than 30 minutes (1) Epistaxis Status: Acute Assessment and plan: I recommend keeping the packs in place bilaterally the balloon was let down bilaterally I did discuss with nursing that they may blow it up again if the epistaxis worsens. Additionally I recommended a mustache dressing as there will be some breakdown of nasal airway blood clot additionally she would need to be on an antibiotic most likely Bactrim because of her penicillin allergy and I would recommend placing mupirocin at the nasal airway to keep from nasal vestibulitis forming. I will continue to follow this patient Thank you very much for this consult 03/27/2017 I recommend no acute changes and care at this time the minimal oozing is of minimal concern and I do not think that the risks of blowing up the Rhino Rocket outweighs the concern of possible septal necrosis at this point. I concur with continued antibiotic coverage as with the nasal packing she does technically have a sinusitis that we are trying to prophylax. While her hemoglobin hematocrit and coagulopathy is resolving I recommend we keep the nasal packing in place. I will continue to follow this case I do not recommend removal of these Rhino Rocket's in the near future at this rate if there are any additional questions do not hesitate to ask 03/28/2017 The decrease in epistaxis issues around the nasal packs bilaterally is encouraging. If there is no worsening of condition I will pull the right Rhino Rocket tomorrow and see if that is tolerated well if if so on Friday we may consider removing the left Rhino Rocket as well. Overall it says she is improving and I am pleased. 03/29/2017 Right Rhino Rocket removed at bedside tolerated well with no epistaxis I will plan on removing the left Rhino Rocket tomorrow morning if she continues to have no recurrence of epistaxis. Current Visit: Yes (2) Chronic anticoagulation Status: Chronic Current Visit: Yes (3) History of atrial fibrillation Status: Chronic Current Visit: Yes Family Medicine PN Sub Interval history: No recurrence of epistaxis patient has stable with her hemoglobin hematocrit and her INR is also stable 24 hours since any epistaxis. Minimal to no oozing no complaints per patient or nursing staff Exam (Progress Note) - Constitutional Vitals: Period Temp Pulse Resp BP Sys/Jara Pulse Ox Last 24 Hr 97.9 F-100.6 F 90-109 18-20 111-159/57-81 92-97 General appearance: no acute distress, over weight - Head Head exam: Present: normal inspection, normocephalic - Eye Eye exam: Present: EOMI Pupils: Present: SATHYA - ENT ENT exam: Present: normal exam, normal external ear exam, normal oropharynx, other (Bilateral packs in place right pack removed at bedside when she has had them most minimal amount of epistaxis during her stay we will let this go for 24 hours and then remove the left pack she is tolerating this well) - Neck Neck exam: Present: normal inspection - Respiratory Respiratory exam: Present: other (No shortness of breath or tachypnea) - GI/Abdominal GI/Abdominal exam: Present: soft (Obese) - Neurological Exam Neurological exam: Present: alert, oriented X3, CN II-XII intact - Psychiatric Psychiatric exam: Present: normal affect, normal mood - Skin Skin exam: Present: normal color, warm Results - Labs CBC & BMP: 03/29/17 06:00 03/29/17 06:00 Lab Results: I have reviewed the past 24 hour labs (Stable the last 24 hours)
[2017-03-29] MEDS: VANCOMYCIN INJ 2,000 MG in SODIUM CHLORIDE 0.9% 500 ML IV SCH ×2 (12:13→21:17)
--- NOTE | 2017-03-29 14:05 | Hospitalist Progress Note ---
Assessment and Plan (1) Epistaxis Status: Acute Assessment and plan: INR normal at 1.2. Hemoglobin stable. Plan to remove her right nasal packing today and monitor. Continue Bactrim and vancomycin. Current Visit: Yes (2) Acute blood loss anemia Status: Acute Assessment and plan: Follow-up repeat CBC and transfuse if hemoglobin less than 8. Current Visit: Yes (3) Warfarin-induced coagulopathy Status: Resolved Assessment and plan: INR 1.2 Current Visit: Yes (4) Chronic anticoagulation Status: Chronic Current Visit: Yes (5) History of atrial fibrillation Status: Chronic Assessment and plan: Rate controlled. Anticoagulated with Coumadin. Elevated INR on admission with epistaxis. Reversal performed with FFP. Current Visit: Yes (6) Hypertension Status: Acute Current Visit: Yes Qualifiers: Hypertension type: essential hypertension Qualified Code(s): I10 - Essential (primary) hypertension Hospitalist: Subjective Interval history: Patient seen and examined. No acute events overnight. Case discussed with nursing staff. Labs reviewed. Discussed with ENT. Exam - Constitutional Vitals: Period Temp Pulse Resp BP Sys/Jara Pulse Ox Last 24 Hr 97.7 F-100.6 F 90-109 18-20 111-159/55-81 94-97 Exam: Constitutional System: morbidly obese, no distress. No tremulousness. Head: Normocephalic, atraumatic. Ears, Nose and Throat System: Bilateral nasal packing and Rhino Rocket's in place. no complains of pain and/ or pressure. Eyes System: Pupils equal, round, and reactive. Extraocular muscles intact. Neck: Supple, without adenopathy, No jugular venous distention. No thyromegaly, neck mass, or prior surgery apparent. Respiratory System: Chest clear to auscultation. Cardiovascular System: Heart with regular rate and rhythm. No murmur. GI System: Abdomen soft, nontender. Normo active bowel sounds present. Neurological System: No discernable sensory deficit. No aphasia Psychiatric System: Conversation is rational Results - Labs CBC & BMP: 03/29/17 06:00 03/29/17 06:00 Lab Results: I have reviewed the past 24 hour labs
[2017-03-30 07:14] LABS: Basophils % 0.3 % (0.0-0.8); Eosinophils # 0.3 10*3/uL (0.0-0.87); Eosinophils % 3.8 % (0.00-10.9); Hematocrit 28.1 VOL% (35.7-47.0); Hemoglobin 8.9 GM/DL (12.0-16.0); Immature Granulocytes % 0.5 %; Immature Granulocytes Absolute 0.04 #; Lymphocytes # 0.7 10*3/uL (1.4-4.0); Lymphocytes % 10.1 % (21.3-54.2); Mean Corpuscular HGB Conc 31.7 GM/DL (32-36); Mean Corpuscular Hemoglobin 29 PG (27-34); Mean Corpuscular Volume 90.9 FL (87-102); Mean Platelet Volume 10.9 FL (9.6-12.0); Monocytes # 0.5 10*3/uL (0.11-0.8); Monocytes % 6.5 % (1.7-12.7); Neutrophils # 5.8 10*3/uL (1.4-7.4); Neutrophils % 78.8 % (38.7-73.9); Platelet Count 149 T/CUMM (130-400); Red Blood Count 3.09 MC/CUMM (3.8-5.5); Red Cell Distribution Width 15.4 % (9.3-17.3); White Blood Count 7.4 T/CUMM (4-12)
--- NOTE | 2017-03-30 08:41 | Progress Note ---
Assessment and Plan - Time spent with patient Time spent with patient: Less than 30 minutes (1) Epistaxis Status: Acute Assessment and plan: I recommend keeping the packs in place bilaterally the balloon was let down bilaterally I did discuss with nursing that they may blow it up again if the epistaxis worsens. Additionally I recommended a mustache dressing as there will be some breakdown of nasal airway blood clot additionally she would need to be on an antibiotic most likely Bactrim because of her penicillin allergy and I would recommend placing mupirocin at the nasal airway to keep from nasal vestibulitis forming. I will continue to follow this patient Thank you very much for this consult 03/27/2017 I recommend no acute changes and care at this time the minimal oozing is of minimal concern and I do not think that the risks of blowing up the Rhino Rocket outweighs the concern of possible septal necrosis at this point. I concur with continued antibiotic coverage as with the nasal packing she does technically have a sinusitis that we are trying to prophylax. While her hemoglobin hematocrit and coagulopathy is resolving I recommend we keep the nasal packing in place. I will continue to follow this case I do not recommend removal of these Rhino Rocket's in the near future at this rate if there are any additional questions do not hesitate to ask 03/28/2017 The decrease in epistaxis issues around the nasal packs bilaterally is encouraging. If there is no worsening of condition I will pull the right Rhino Rocket tomorrow and see if that is tolerated well if if so on Friday we may consider removing the left Rhino Rocket as well. Overall it says she is improving and I am pleased. 03/29/2017 Right Rhino Rocket removed at bedside tolerated well with no epistaxis I will plan on removing the left Rhino Rocket tomorrow morning if she continues to have no recurrence of epistaxis. 03/30/2017 Left Rhino Rocket removed at bedside tolerated well no epistaxis. After several hour trial with no epistaxis evidence that she would be safe to discharge to home but I will defer this to the hospitalist I will sign off on this case but I remain available if there is any questions or concerns. Current Visit: Yes (2) Chronic anticoagulation Status: Chronic Current Visit: Yes (3) History of atrial fibrillation Status: Chronic Current Visit: Yes Family Medicine PN Sub Interval history: No new episodes of epistaxis over the night from the right side the patient has had no new complaints or problems they did give some more packed red blood cells because of a little bit of a decrease in her hemoglobin. But no obvious evidence of epistaxis. Exam (Progress Note) - Constitutional Vitals: Period Temp Pulse Resp BP Sys/Jara Pulse Ox Last 24 Hr 97.7 F-99.2 F 95-107 18-20 114-135/55-74 95-97 General appearance: no acute distress, over weight - Head Head exam: Present: normal inspection, normocephalic - ENT ENT exam: Present: normal exam, normal external ear exam, normal oropharynx, other (Left Rhino Rocket in place removed at bedside no evidence of epistaxis I would recommend continue to watch her throughout this morning and she can be discharged home later today if primary care/the hospitalist desires) - Neck Neck exam: Present: normal inspection - Respiratory Respiratory exam: Present: other (No shortness of breath or tachypnea) - GI/Abdominal GI/Abdominal exam: Present: soft (Obese) - Extremities Exam Extremities exam: Present: normal inspection - Neurological Exam Neurological exam: Present: alert, oriented X3, CN II-XII intact - Psychiatric Psychiatric exam: Present: normal affect, normal mood - Skin Skin exam: Present: normal color, warm Results - Labs CBC & BMP: 03/30/17 07:06 03/29/17 06:00 Lab Results: I have reviewed the past 24 hour labs
[2017-03-30] MEDS: ALLOPURINOL 300 MG TABLET PO SCH (08:51)
[2017-03-30] MEDS: LOSARTAN 50 MG TABLET PO SCH (08:51)
[2017-03-30] MEDS: SULFAMETHOX/TRIMETHOPRIM 800-160 MG TABLET PO SCH ×2 (08:51→20:31)
[2017-03-30] MEDS: PANTOPRAZOLE 40 MG TABLET PO SCH (08:51)
[2017-03-30] MEDS: ASPIRIN CHEW 81 MG TABLET PO SCH (08:51)
[2017-03-30] MEDS: predniSONE 5 MG TABLET PO SCH (08:52)
[2017-03-30] MEDS: METOPROLOL TARTRATE 25 MG TABLET PO SCH ×2 (08:52→20:31)
[2017-03-30] MEDS: MUPIROCIN 2% OINT 22 GM TUBE TOP SCH ×3 (09:22→20:31)
--- NOTE | 2017-03-30 14:30 | Hospitalist Progress Note ---
Assessment and Plan (1) Epistaxis Status: Acute Assessment and plan: INR normal at 1.2. Hemoglobin stable. Plan to remove her left nasal packing today and monitor. Continue Bactrim and vancomycin. Home in a.m. Current Visit: Yes (2) Acute blood loss anemia Status: Acute Assessment and plan: Follow-up repeat CBC and transfuse if hemoglobin less than 8. Current Visit: Yes (3) Warfarin-induced coagulopathy Status: Resolved Assessment and plan: INR 1.2 Current Visit: Yes (4) Chronic anticoagulation Status: Chronic Current Visit: Yes (5) History of atrial fibrillation Status: Chronic Assessment and plan: Rate controlled. Anticoagulated with Coumadin. Elevated INR on admission with epistaxis. Reversal performed with FFP. Current Visit: Yes (6) Hypertension Status: Acute Current Visit: Yes Qualifiers: Hypertension type: essential hypertension Qualified Code(s): I10 - Essential (primary) hypertension Hospitalist: Subjective Interval history: Patient seen and examined. No acute events overnight. Case discussed with nursing staff. Labs reviewed. Second nasal packing removed today by ENT. No evidence of ongoing bleeding. Plan to discharge home in a.m. if no further bleeding occurs and if H&H is stable Exam - Constitutional Vitals: Period Temp Pulse Resp BP Sys/Jara Pulse Ox Last 24 Hr 97.7 F-99.2 F 100-112 18-20 115-135/60-74 92-96 Exam: Constitutional System: morbidly obese, no distress. No tremulousness. More sleepy today Head: Normocephalic, atraumatic. Ears, Nose and Throat System: Bilateral nasal packing removed and no evidence of ongoing bleeding. Eyes System: Pupils equal, round, and reactive. Extraocular muscles intact. Neck: Supple, without adenopathy, No jugular venous distention. No thyromegaly, neck mass, or prior surgery apparent. Respiratory System: Chest clear to auscultation. Cardiovascular System: Heart with regular rate and rhythm. No murmur. GI System: Abdomen soft, nontender. Normo active bowel sounds present. Neurological System: No discernable sensory deficit. No aphasia Psychiatric System: Conversation is rational Results - Labs CBC & BMP: 03/30/17 07:06 03/29/17 06:00 Lab Results: I have reviewed the past 24 hour labs
[2017-03-30] MEDS ORDERED: WARFARIN 5 MG TABLET PO SCH (18:00)
[2017-03-30] MEDS: VANCOMYCIN INJ 2,000 MG in SODIUM CHLORIDE 0.9% 500 ML IV SCH (20:35)
[2017-03-31 05:27] LABS: Basophils % 0.3 % (0.0-0.8); Eosinophils # 0.4 10*3/uL (0.0-0.87); Eosinophils % 5.9 % (0.00-10.9); Hematocrit 28.7 VOL% (35.7-47.0); Hemoglobin 9.1 GM/DL (12.0-16.0); Immature Granulocytes % 0.5 %; Immature Granulocytes Absolute 0.03 #; Lymphocytes # 0.7 10*3/uL (1.4-4.0); Lymphocytes % 12.2 % (21.3-54.2); Mean Corpuscular HGB Conc 31.7 GM/DL (32-36); Mean Corpuscular Hemoglobin 29 PG (27-34); Mean Corpuscular Volume 90.5 FL (87-102); Monocytes # 0.4 10*3/uL (0.11-0.8); Monocytes % 6.4 % (1.7-12.7); Neutrophils # 4.4 10*3/uL (1.4-7.4); Neutrophils % 74.7 % (38.7-73.9); Platelet Count 161 T/CUMM (130-400); Red Blood Count 3.17 MC/CUMM (3.8-5.5); Red Cell Distribution Width 15.2 % (9.3-17.3); White Blood Count 5.9 T/CUMM (4-12)
[2017-03-31] MEDS: predniSONE 5 MG TABLET PO SCH (08:52)
[2017-03-31] MEDS: ALLOPURINOL 300 MG TABLET PO SCH (08:52)
[2017-03-31] MEDS: METOPROLOL TARTRATE 25 MG TABLET PO SCH (08:52)
[2017-03-31] MEDS: PANTOPRAZOLE 40 MG TABLET PO SCH (08:52)
[2017-03-31] MEDS: LOSARTAN 50 MG TABLET PO SCH (08:52)
[2017-03-31] MEDS: ASPIRIN CHEW 81 MG TABLET PO SCH (08:52)
[2017-03-31] MEDS: MUPIROCIN 2% OINT 22 GM TUBE TOP SCH (08:53)
[2017-03-31] MEDS: SULFAMETHOX/TRIMETHOPRIM 800-160 MG TABLET PO SCH (08:53)
--- NOTE | 2017-03-31 09:42 | Discharge Summary ---
<Tommie Ivy - Last Filed: 03/31/17 09:46> Hospital Course - Hospital Course Hospital Course: This is a very pleasant 76 year old female that presented to ED at [facility] as a lateral transfer from [facility] in [place] for evaluation for epistaxis. At the time of admission, she reported a rather impressive medical history significant for hypertension, atrial fibrillation,carcinoma of the skin, chronic obstructive pulmonary disease, and transient ischemic attack in 2011. She reported the onset of the above complaints on the morning of 03/25. She reported that the noticed the bleeding when she woke up that morning and was unable to stop the bleeding. In addition, she reported incidents similar of the above in recent months. She attributed those episodes to her recent initiation of oral coagulation agents for the treatment of atrial fibrillation. The patient reports a recent initiation of radiation treatments for treatment of skin cancer and suggests that the radiation is a causative factor of the above symptoms. Labs were obtained at the time of presentation, which revealed a hemoglobin of 9.4, hematocrit of 31.0, INR of 3.5, PTT of 43.5, PT of 40.58, BUN of 29, and creatinine of 1.40. Bilateral nasal packings were placed in the ED. The patient was type and screened,fresh frozen plasma was ordered, empiric antibiotics were initiated, and an ENT consult was requested. She was admitted under the hospitalist services for continuation of care. She was seen and evaluated by Dr. Cisneros. Her nasal packings remained in place and were subsequently removed on yesterday. She was experienced no further episodes of epistaxis have been noted. Today, her condition is stable. In our medical opinion, she is indeed appropriate for discharge home with follow-up with her PCP and ENT as directed. Discharge Plan - Discharge Medications New Sulfameth/Trimeth 800-160 Tab [Bactrim DS Tab] 1 tablet PO BID #10 tablet Warfarin [Coumadin] 5 mg PO DAILY@1800 #30 tablet Continue Metoprolol Tartrate Tab [Lopressor Tab] 25 mg PO BID predniSONE [Dominique] 5 mg PO DAILY Potassium Chloride Cap/Tab [K Dur] 10 meq PO DAILY Losartan [Cozaar] 100 mg PO DAILY Allopurinol 300 mg PO DAILY hydrALAZINE TAB [Apresoline Tab] 100 mg PO TID Hydrocodone/Acetaminophen [Hydrocodon-Acetaminophen 5-325] 1 each PO TID PRN PRN Reason: Pain Aspirin Chew Tab 81 mg PO DAILY Discontinued Spironolactone [Aldactone] 50 mg PO BID Warfarin [Coumadin] 5.5 mg PO DAILY - Follow Up or Referral - Forms/Instructions Exam - Constitutional Vitals: Period Temp Pulse Resp BP Sys/Jara Pulse Ox Last 24 Hr 97.4 F-98.7 F 80-112 17-21 103-134/60-88 92-100 Discharge Results Labs on day of discharge: Labs from last 24 hours 03/31/17 04:48 WBC 5.9 RBC 3.17 L Hgb 9.1 L Hct 28.7 L MCV 90.5 MCH 29 MCHC 31.7 L RDW 15.2 Plt Count 161 MPV 11.0 Neut % (Auto) 74.7 H Lymph % (Auto) 12.2 L [place] % (Auto) 6.4 Eos % (Auto) 5.9 Baso % (Auto) 0.3 Neut # (Auto) 4.4 Lymph # (Auto) 0.7 L [place] # (Auto) 0.4 Eos # (Auto) 0.4 Baso # (Auto) 0.0 Immature Gran % 0.5 Nucleated RBC % 0.0 Immature Gran # 0.03 Nucleated RBCs # 0.00 DS: Provider Date of admission: 03/25/17 15:51 Primary care physician: . No PCP Attending physician on admission: Zoey Rodriguez MD Consults: 03/25/17 17:15 Consult to Pharmacy [CONS] Routine Reason for Pharmacy Consult: Adjust Meds Renal Funct 03/27/17 10:26 Consult to Pharmacy [CONS] Routine Reason for Pharmacy Consult: Dose/Manage Vancomycin Discharging clinician: Tommie Ivy CNP <Joyce Crow - Last Filed: 03/31/17 10:18> Hospital Course - Hospital Course Hospital Course: Patient seen and examined by me along with MARTHA Ivy, agree with hospital course as documented. She will follow-up with her coumadin clinic as already scheduled this week. - Time spent with patient Time with patient DS: Less than 30 minutes Diagnosis - Discharge Diagnosis (1) Epistaxis Status: Resolved (2) Chronic anticoagulation Status: Chronic (3) History of atrial fibrillation Status: Chronic Discharge Plan - Discharge Data Condition at Discharge: Stable Discharge Diet: advance to your usual diet Activity: resume usual activities as tolerated Hygiene: no restrictions Weight Bearing at Discharge: weight bear as tolerated Driving: no restrictions Contact your physician if you experience:: Bleeding Exam - Constitutional General appearance: over weight - Head Head exam: Present: normocephalic, atraumatic - Eye Eye exam: Present: EOMI Pupils: Present: SATHYA - ENT ENT exam: Present: normal exam - Neck Neck exam: Present: normal inspection - Respiratory Respiratory exam: Present: clear to auscultation bilaterally. Absent: rhonchi, wheezes - Cardiovascular Cardiovascular exam: Present: regular rate and rhythm - GI/Abdominal GI/Abdominal exam: Present: normal bowel sounds, soft. Absent: mass, tenderness , rebound - Extremities Exam Extremities exam: Present: normal inspection - Back Exam Back exam: Present: normal inspection - Neurological Exam Neurological exam: Present: alert - Psychiatric Psychiatric exam: Present: normal affect, normal mood - Skin Skin exam: Present: warm, intact
[2017-03-31 12:55] VITALS: BP 124/63
== END 2017-03-31 13:45 | disposition home or self-care (01) | DRG 151 ==
LOC: EDUNIT# → EDBD → N.ED 14:38 → N.EDINP 15:51 → SUATTDRO 15:51 → N.5E 16:58
PROVIDERS: ADMIT Internal Medicine; ATTEND Internal Medicine

== ENCOUNTER 2020-01-05 17:49 | Inpatient (IN) ==
[2020-01-05] MEDS ORDERED: ONDANSETRON 4 MG/2 ML VIAL IV PRN (22:52)
[2020-01-05] MEDS ORDERED: DOCUSATE SODIUM 100 MG CAPSULE PO PRN (22:52)
[2020-01-05] MEDS ORDERED: MAGNESIUM SULF RIDER 2 GM in PREMIX 1 EACH IV PRN (23:02)
[2020-01-05] MEDS ORDERED: MAGNESIUM SULF RIDER 4 GM in PREMIX 1 EACH IV PRN (23:02)
[2020-01-05] MEDS ORDERED: ALBUTEROL/IPRATROPIUM 3 ML NEB RESP TX PRN (23:08)
[2020-01-06 00:11] LABS: INR 1.1; PT Patient Result 11.7 SECS (9.6-12.2); Partial Thromboplastin Time 38.8 SECS (20.8-36.0)
[2020-01-06 00:13] LABS: Thyroid Stimulating Hormone 1.36 uIU/ml (0.358-3.74)
[2020-01-06] MEDS: CLINDAMYCIN INJ 600 MG in PREMIX 1 EACH IV SCH ×3 (00:53→15:42)
[2020-01-06] MEDS: ACETAMINOPHEN 325 MG TABLET PO PRN ×3 (04:40→21:47)
[2020-01-06 05:27] LABS: Basophils % 0.2 % (0.0-0.8); Eosinophils # 1.3 10*3/uL (0.0-0.87); Eosinophils % 20.6 % (0.00-10.9); Hematocrit 30.4 VOL% (35.7-47.0); Hemoglobin 9.2 GM/DL (12.0-16.0); Immature Granulocytes % 0.3 %; Immature Granulocytes Absolute 0.02 #; Lymphocytes # 0.6 10*3/uL (1.4-4.0); Lymphocytes % 9.7 % (21.3-54.2); Mean Corpuscular HGB Conc 30.3 GM/DL (32-36); Mean Corpuscular Volume 93.3 FL (87-102); Mean Platelet Volume 11.4 FL (9.6-12.0); Monocytes % 5.7 % (1.7-12.7); Neutrophils % 63.5 % (38.7-73.9); Platelet Count 203 T/CUMM (130-400); Red Blood Count 3.26 MC/CUMM (3.8-5.5); Red Cell Distribution Width 14.6 % (9.3-17.3); White Blood Count 6.2 T/CUMM (4-12)
[2020-01-06 06:00] LABS: Eosinophils 13 % (0-10); Hypochromasia 1+; Lymphocytes 12 % (20-55); Ovalocytes Few; Segmented Neutrophils 69 % (50-85); Total Cells Counted 100
[2020-01-06 06:01] LABS: Microcytosis Slight; Platelet Estimate Normal
[2020-01-06 06:29] LABS: Albumin 2.7 G/DL (3.4-5.0); Calcium 8.7 MG/DL (8.5-10.1); Osmolality,Calculated 289.5 MOS/KG (273-304); Risk Ratio 3.48; VLDL CHOLESTEROL 14.2 MG/DL
[2020-01-06] MEDS: FUROSEMIDE 40 MG/4 ML VIAL IV SCH (09:01)
[2020-01-06] MEDS: PANTOPRAZOLE 40 MG TABLET PO SCH (09:04)
[2020-01-06] MEDS: APIXABAN 5 MG TABLET PO SCH ×2 (12:07→21:46)
[2020-01-06] MEDS: SPIRONOLACTONE 50 MG TABLET PO SCH ×2 (12:07→21:47)
[2020-01-06] MEDS: METOPROLOL TARTRATE 25 MG TABLET PO SCH ×2 (12:07→21:50)
[2020-01-06 13:15] LABS: Apearance,Urine CLEAR (Clear); Bacteria,Urine Many /HPF (Few); Bilirubin,Urine Negative (Negative); Blood, Urine Negative (Negative); Glucose,Urine (UA) Negative (Negative); Hyaline Casts,Urine 1 /LPF (0-3); Ketones,Urine Negative (Negative); Mucus,Urine Occasional /LPF (Occasional); Nitrite,Urine Negative (Negative); Protein,Urine Negative; RBC,Urine 1 /HPF (0-4); Squamous Epithelial Cell,Urine Occasional /HPF (0-10); Urine Color Straw (Yellow); Urine Specific Gravity 1.006 (1.001-1.035); Urine Urobilinogen < 2.0 EU/DL (0.2-1.0); WBC,Urine 18 /HPF (0-6)
[2020-01-06] MEDS: SKIN HEALING OINT (AQUAPHOR) 50 GM TUBE TOP PRN (17:14)
[2020-01-06] MEDS: SILDENAFIL 20 MG TABLET PO SCH (21:47)
[2020-01-07] MEDS: CLINDAMYCIN INJ 600 MG in PREMIX 1 EACH IV SCH ×2 (00:37→09:25)
[2020-01-07 05:40] LABS: Basophils % 0.2 % (0.0-0.8); Eosinophils # 1.2 10*3/uL (0.0-0.87); Eosinophils % 18.9 % (0.00-10.9); Hematocrit 27.3 VOL% (35.7-47.0); Hemoglobin 8.3 GM/DL (12.0-16.0); Immature Granulocytes % 0.5 %; Immature Granulocytes Absolute 0.03 #; Lymphocytes # 0.6 10*3/uL (1.4-4.0); Lymphocytes % 10.5 % (21.3-54.2); Mean Corpuscular HGB Conc 30.4 GM/DL (32-36); Mean Corpuscular Volume 92.2 FL (87-102); Mean Platelet Volume 11.6 FL (9.6-12.0); Monocytes % 4.8 % (1.7-12.7); Neutrophils % 65.1 % (38.7-73.9); Platelet Count 192 T/CUMM (130-400); Red Blood Count 2.96 MC/CUMM (3.8-5.5); Red Cell Distribution Width 14.3 % (9.3-17.3); White Blood Count 6.1 T/CUMM (4-12)
[2020-01-07 06:02] LABS: Calcium 8.3 MG/DL (8.5-10.1); Osmolality,Calculated 292.3 MOS/KG (273-304)
[2020-01-07 06:10] LABS: Band Neutrophils 3 % (0-10); Eosinophils 19 % (0-10); Hypochromasia 2+; Lymphocytes 13 % (20-55); Platelet Estimate Normal; Segmented Neutrophils 59 % (50-85); Total Cells Counted 100
[2020-01-07] MEDS: SPIRONOLACTONE 50 MG TABLET PO SCH ×2 (09:23→20:36)
[2020-01-07] MEDS: PANTOPRAZOLE 40 MG TABLET PO SCH (09:24)
[2020-01-07] MEDS: SILDENAFIL 20 MG TABLET PO SCH ×3 (09:24→20:37)
[2020-01-07] MEDS: METOPROLOL TARTRATE 25 MG TABLET PO SCH ×2 (09:24→20:36)
[2020-01-07] MEDS: APIXABAN 5 MG TABLET PO SCH ×2 (09:24→20:37)
[2020-01-07] MEDS: FUROSEMIDE 40 MG/4 ML VIAL IV SCH (09:30)
[2020-01-07 11:23] LABS: % Iron Saturation 13.9 % (18-50); Ferritin 308.8 ng/ml (8-252)
[2020-01-07] MEDS: LEVOFLOXACIN INJ 500 MG in PREMIX 1 EACH IV SCH (11:36)
[2020-01-07] MEDS: ACETAMINOPHEN 325 MG TABLET PO PRN ×2 (11:37→20:36)
[2020-01-07] MEDS: ACETAMINOPHEN/CODEINE 300-30 MG TABLET PO PRN ×2 (12:07→18:27)
[2020-01-07 12:23] LABS: Folate 5.3 NG/ML (5.4-24.0)
[2020-01-07] MEDS: GABAPENTIN 100 MG CAPSULE PO SCH ×2 (15:03→20:36)
[2020-01-07] MEDS: cefOXitin 1,000 MG in SYRINGE 1 EACH IV SCH (16:46)
[2020-01-07] MEDS: SKIN HEALING OINT (AQUAPHOR) 50 GM TUBE TOP PRN (17:10)
[2020-01-08] MEDS: cefOXitin 1,000 MG in SYRINGE 1 EACH IV SCH (03:30)
[2020-01-08] MEDS: ACETAMINOPHEN/CODEINE 300-30 MG TABLET PO PRN ×3 (07:20→20:20)
[2020-01-08 07:51] LABS: Eosinophils # 0.8 10*3/uL (0.0-0.87); Eosinophils % 15.1 % (0.00-10.9); Hematocrit 28.9 VOL% (35.7-47.0); Immature Granulocytes % 0.4 %; Immature Granulocytes Absolute 0.02 #; Lymphocytes # 0.6 10*3/uL (1.4-4.0); Mean Corpuscular HGB Conc 31.1 GM/DL (32-36); Mean Platelet Volume 11.2 FL (9.6-12.0); Monocytes % 3.8 % (1.7-12.7); Neutrophils % 70.7 % (38.7-73.9); Platelet Count 197 T/CUMM (130-400); Red Blood Count 3.14 MC/CUMM (3.8-5.5); Red Cell Distribution Width 14.4 % (9.3-17.3); White Blood Count 5.5 T/CUMM (4-12)
[2020-01-08] MEDS ORDERED: methylPREDNISolone SOD SUC 40 MG/1 ML VIAL IV SCH (08:00)
[2020-01-08] MEDS: PANTOPRAZOLE 40 MG TABLET PO SCH (08:06)
[2020-01-08] MEDS: APIXABAN 5 MG TABLET PO SCH ×2 (08:06→20:20)
[2020-01-08] MEDS: METOPROLOL TARTRATE 25 MG TABLET PO SCH ×2 (08:06→20:20)
[2020-01-08] MEDS: SPIRONOLACTONE 50 MG TABLET PO SCH ×2 (08:06→20:20)
[2020-01-08] MEDS: GABAPENTIN 100 MG CAPSULE PO SCH ×3 (08:06→20:20)
[2020-01-08] MEDS: SILDENAFIL 20 MG TABLET PO SCH ×3 (08:06→20:20)
[2020-01-08] MEDS: FUROSEMIDE 40 MG/4 ML VIAL IV SCH (08:06)
[2020-01-08 08:17] LABS: Calcium 8.2 MG/DL (8.5-10.1); Osmolality,Calculated 287.5 MOS/KG (273-304)
[2020-01-08 08:32] LABS: Eosinophils 21 % (0-10); Hypochromasia 1+; Lymphocytes 8 % (20-55); Ovalocytes Slight; Platelet Estimate Adequate; Segmented Neutrophils 70 % (50-85); Total Cells Counted 100
[2020-01-08 08:33] LABS: Microcytosis Slight
[2020-01-08] MEDS: FAMOTIDINE INJ 40 MG in SODIUM CHLORIDE 0.9% 100 ML IV SCH (09:22)
[2020-01-08] MEDS: diphenhydrAMINE CAP 25 MG CAPSULE PO PRN ×2 (09:51→20:20)
[2020-01-08] MEDS: LEVOFLOXACIN INJ 500 MG in PREMIX 1 EACH IV SCH (10:00)
[2020-01-08] MEDS ORDERED: methylPREDNISolone SOD SUC 40 MG/1 ML VIAL IV ONE (10:30)
[2020-01-08] MEDS: SKIN HEALING OINT (AQUAPHOR) 50 GM TUBE TOP PRN (10:42)
[2020-01-08] MEDS: ALBUTEROL/IPRATROPIUM 3 ML NEB RESP TX SCH ×4 (10:48→23:43)
[2020-01-08] MEDS: FERROUS SULFATE 325 MG TABLET PO SCH (13:09)
[2020-01-08] MEDS: methylPREDNISolone SOD SUC 125 MG/2 ML VIAL IV SCH (18:12)
[2020-01-08] MEDS ORDERED: GLUCAGON 1 MG VIAL IM PRN (18:28)
[2020-01-08] MEDS ORDERED: DEXTROSE 10% 250 ML BAG IV PRN (18:28)
[2020-01-08] MEDS: FOLIC ACID 1 MG TABLET PO SCH (20:20)
[2020-01-09] MEDS: methylPREDNISolone SOD SUC 125 MG/2 ML VIAL IV SCH ×3 (01:15→17:26)
[2020-01-09] MEDS: ALBUTEROL/IPRATROPIUM 3 ML NEB RESP TX SCH ×5 (02:58→20:04)
[2020-01-09 06:09] LABS: Basophils % 0.1 % (0.0-0.8); Eosinophils % 0.5 % (0.00-10.9); Hematocrit 29.4 VOL% (35.7-47.0); Hemoglobin 9.1 GM/DL (12.0-16.0); Immature Granulocytes % 0.7 %; Immature Granulocytes Absolute 0.06 #; Lymphocytes # 0.4 10*3/uL (1.4-4.0); Lymphocytes % 4.8 % (21.3-54.2); Mean Corpuscular Volume 91.6 FL (87-102); Mean Platelet Volume 11.2 FL (9.6-12.0); Neutrophils % 92.9 % (38.7-73.9); Platelet Count 187 T/CUMM (130-400); Red Blood Count 3.21 MC/CUMM (3.8-5.5); Red Cell Distribution Width 14.3 % (9.3-17.3); White Blood Count 8.8 T/CUMM (4-12)
[2020-01-09 06:26] LABS: Calcium 8.6 MG/DL (8.5-10.1); Osmolality,Calculated 297.5 MOS/KG (273-304)
[2020-01-09 06:43] LABS: Hypochromasia 1+; Lymphocytes 6 % (20-55); Microcytosis Slight; Ovalocytes Slight; Platelet Estimate Adequate; Segmented Neutrophils 94 % (50-85); Total Cells Counted 100
[2020-01-09] MEDS ORDERED: INSULIN REGULAR 100 UNIT/ML SUBCUT SCH (07:30)
[2020-01-09] MEDS ORDERED: GLUCAGON 1 MG VIAL IM PRN (09:08)
[2020-01-09] MEDS ORDERED: DEXTROSE 50% 25 GM/50 ML VIAL IV PRN (09:08)
[2020-01-09] MEDS: FAMOTIDINE INJ 40 MG in SODIUM CHLORIDE 0.9% 100 ML IV SCH (09:50)
[2020-01-09] MEDS: SKIN HEALING OINT (AQUAPHOR) 50 GM TUBE TOP PRN (09:52)
[2020-01-09] MEDS: SILDENAFIL 20 MG TABLET PO SCH ×3 (09:57→21:24)
[2020-01-09] MEDS: PANTOPRAZOLE 40 MG TABLET PO SCH (09:58)
[2020-01-09] MEDS: METOPROLOL TARTRATE 25 MG TABLET PO SCH ×2 (09:58→21:19)
[2020-01-09] MEDS: GABAPENTIN 100 MG CAPSULE PO SCH ×3 (09:58→21:18)
[2020-01-09] MEDS: APIXABAN 5 MG TABLET PO SCH ×2 (09:58→21:18)
[2020-01-09] MEDS: ACETAMINOPHEN/CODEINE 300-30 MG TABLET PO PRN ×2 (09:58→21:18)
[2020-01-09] MEDS: SPIRONOLACTONE 50 MG TABLET PO SCH ×2 (09:58→21:17)
[2020-01-09] MEDS: FERROUS SULFATE 325 MG TABLET PO SCH (09:59)
[2020-01-09] MEDS: FUROSEMIDE 40 MG/4 ML VIAL IV SCH (10:12)
[2020-01-09] MEDS: LEVOFLOXACIN INJ 500 MG in PREMIX 1 EACH IV SCH (11:42)
[2020-01-09] MEDS: INSULIN REGULAR 100 UNIT/ML SUBCUT SCH ×3 (14:02→21:19)
[2020-01-09] MEDS: FOLIC ACID 1 MG TABLET PO SCH (21:19)
[2020-01-10] MEDS: ALBUTEROL/IPRATROPIUM 3 ML NEB RESP TX SCH ×6 (00:24→19:49)
[2020-01-10] MEDS: methylPREDNISolone SOD SUC 125 MG/2 ML VIAL IV SCH ×3 (01:20→17:00)
[2020-01-10 05:15] LABS: Basophils % 0.1 % (0.0-0.8); Eosinophils % 0.1 % (0.00-10.9); Hematocrit 27.7 VOL% (35.7-47.0); Hemoglobin 8.7 GM/DL (12.0-16.0); Immature Granulocytes % 0.8 %; Lymphocytes # 0.4 10*3/uL (1.4-4.0); Lymphocytes % 3.1 % (21.3-54.2); Mean Corpuscular HGB Conc 31.4 GM/DL (32-36); Mean Corpuscular Volume 89.4 FL (87-102); Mean Platelet Volume 11.8 FL (9.6-12.0); Monocytes % 1.6 % (1.7-12.7); Neutrophils % 94.3 % (38.7-73.9); Platelet Count 215 T/CUMM (130-400); Red Cell Distribution Width 14.4 % (9.3-17.3); White Blood Count 11.9 T/CUMM (4-12)
[2020-01-10 05:39] LABS: Band Neutrophils 1 % (0-10); Hypochromasia 1+; Lymphocytes 4 % (20-55); Ovalocytes Slight; Platelet Estimate Adequate; Segmented Neutrophils 95 % (50-85); Total Cells Counted 100
[2020-01-10 05:40] LABS: Microcytosis Slight
[2020-01-10 05:42] LABS: Calcium 8.8 MG/DL (8.5-10.1); Osmolality,Calculated 295.5 MOS/KG (273-304)
[2020-01-10] MEDS: GABAPENTIN 100 MG CAPSULE PO SCH ×3 (08:17→21:40)
[2020-01-10] MEDS: SPIRONOLACTONE 50 MG TABLET PO SCH ×2 (08:17→21:40)
[2020-01-10] MEDS: SILDENAFIL 20 MG TABLET PO SCH ×3 (08:18→21:41)
[2020-01-10] MEDS: INSULIN REGULAR 100 UNIT/ML SUBCUT SCH ×4 (08:18→21:40)
[2020-01-10] MEDS: PANTOPRAZOLE 40 MG TABLET PO SCH (08:18)
[2020-01-10] MEDS: METOPROLOL TARTRATE 25 MG TABLET PO SCH ×2 (08:18→21:41)
[2020-01-10] MEDS: FERROUS SULFATE 325 MG TABLET PO SCH (08:18)
[2020-01-10] MEDS: APIXABAN 5 MG TABLET PO SCH ×2 (08:18→21:41)
[2020-01-10] MEDS: FUROSEMIDE 40 MG/4 ML VIAL IV SCH (08:19)
[2020-01-10] MEDS: FAMOTIDINE INJ 40 MG in SODIUM CHLORIDE 0.9% 100 ML IV SCH (08:26)
[2020-01-10] MEDS: LEVOFLOXACIN INJ 500 MG in PREMIX 1 EACH IV SCH (10:50)
[2020-01-10] MEDS: FOLIC ACID 1 MG TABLET PO SCH (21:40)
[2020-01-11] MEDS: ALBUTEROL/IPRATROPIUM 3 ML NEB RESP TX SCH ×6 (01:33→21:16)
[2020-01-11] MEDS: methylPREDNISolone SOD SUC 125 MG/2 ML VIAL IV SCH ×2 (04:02→10:39)
[2020-01-11 06:03] LABS: Hematocrit 29.6 VOL% (35.7-47.0); Hemoglobin 9.2 GM/DL (12.0-16.0); Immature Granulocytes % 1.6 %; Immature Granulocytes Absolute 0.17 #; Lymphocytes # 0.4 10*3/uL (1.4-4.0); Lymphocytes % 3.6 % (21.3-54.2); Mean Corpuscular HGB Conc 31.1 GM/DL (32-36); Mean Corpuscular Volume 89.4 FL (87-102); Monocytes % 1.6 % (1.7-12.7); NRBC # 0.02 10*3/uL; Neutrophils % 93.2 % (38.7-73.9); Platelet Count 231 T/CUMM (130-400); Red Blood Count 3.31 MC/CUMM (3.8-5.5); Red Cell Distribution Width 14.6 % (9.3-17.3); White Blood Count 10.4 T/CUMM (4-12)
[2020-01-11 06:24] LABS: Hypochromasia 1+; Lymphocytes 5 % (20-55); Segmented Neutrophils 92 % (50-85); Total Cells Counted 100
[2020-01-11 06:25] LABS: Microcytosis 1+; Ovalocytes Slight
[2020-01-11 06:26] LABS: Platelet Estimate Normal
[2020-01-11 06:28] LABS: Calcium 8.6 MG/DL (8.5-10.1); Osmolality,Calculated 298.5 MOS/KG (273-304)
[2020-01-11] MEDS: GABAPENTIN 100 MG CAPSULE PO SCH ×3 (09:25→21:38)
[2020-01-11] MEDS: APIXABAN 5 MG TABLET PO SCH ×2 (09:25→21:38)
[2020-01-11] MEDS: SPIRONOLACTONE 50 MG TABLET PO SCH ×2 (09:25→21:38)
[2020-01-11] MEDS: PANTOPRAZOLE 40 MG TABLET PO SCH (09:25)
[2020-01-11] MEDS: METOPROLOL TARTRATE 25 MG TABLET PO SCH ×2 (09:25→21:39)
[2020-01-11] MEDS: SILDENAFIL 20 MG TABLET PO SCH ×3 (09:25→21:41)
[2020-01-11] MEDS: INSULIN REGULAR 100 UNIT/ML SUBCUT SCH ×4 (09:25→21:39)
[2020-01-11] MEDS: FERROUS SULFATE 325 MG TABLET PO SCH (09:25)
[2020-01-11] MEDS: FUROSEMIDE 40 MG/4 ML VIAL IV SCH (10:36)
[2020-01-11] MEDS: FAMOTIDINE INJ 40 MG in SODIUM CHLORIDE 0.9% 100 ML IV SCH (10:41)
[2020-01-11] MEDS: LEVOFLOXACIN INJ 500 MG in PREMIX 1 EACH IV SCH (11:15)
[2020-01-11] MEDS ORDERED: TUBERCULIN SKIN TEST 0.1 ML SYRINGE INTRADERM ONE (14:13)
[2020-01-11] MEDS ORDERED: INSULIN GLARGINE 100 UNIT/ML SUBCUT SCH (21:00)
[2020-01-11] MEDS: FOLIC ACID 1 MG TABLET PO SCH (21:39)
[2020-01-12] MEDS: ALBUTEROL/IPRATROPIUM 3 ML NEB RESP TX SCH ×4 (00:57→10:28)
[2020-01-12] MEDS ORDERED: predniSONE 20 MG TABLET PO SCH (09:00)
[2020-01-12] MEDS: APIXABAN 5 MG TABLET PO SCH (09:07)
[2020-01-12] MEDS: METOPROLOL TARTRATE 25 MG TABLET PO SCH (09:07)
[2020-01-12] MEDS: PANTOPRAZOLE 40 MG TABLET PO SCH (09:07)
[2020-01-12] MEDS: SPIRONOLACTONE 50 MG TABLET PO SCH (09:07)
[2020-01-12] MEDS: FERROUS SULFATE 325 MG TABLET PO SCH (09:07)
[2020-01-12] MEDS: GABAPENTIN 100 MG CAPSULE PO SCH ×2 (09:08→14:46)
[2020-01-12] MEDS: INSULIN REGULAR 100 UNIT/ML SUBCUT SCH ×2 (09:12→11:59)
[2020-01-12] MEDS: FUROSEMIDE 40 MG/4 ML VIAL IV SCH (10:05)
[2020-01-12] MEDS: FAMOTIDINE INJ 40 MG in SODIUM CHLORIDE 0.9% 100 ML IV SCH (10:06)
[2020-01-12] MEDS: SILDENAFIL 20 MG TABLET PO SCH ×2 (10:25→14:46)
[2020-01-12] MEDS: LEVOFLOXACIN INJ 500 MG in PREMIX 1 EACH IV SCH (11:57)
[2020-01-12 12:01] VITALS: BP 124/59
[2020-01-12] MEDS ORDERED: INSULIN GLARGINE 100 UNIT/ML SUBCUT SCH (12:26)
[2020-01-12] MEDS ORDERED: LACTULOSE 20 GM/30 ML UDCUP PO ONE (14:05)
== END 2020-01-12 15:00 | disposition swing bed (61) | DRG 291 ==
LOC: N.TELEN 22:11 → SUATTDRO 22:11
PROVIDERS: ADMIT Internal Medicine; ATTEND Internal Medicine